=== PATIENT | female | born 1975 | race Caucasian/White ===

== ENCOUNTER → 2021-10-03 | Day surgery (SDC) | payer OTHER ==
[~2021-10-03] VITALS: Ht 167.6 cm; Wt 90.7 kg
[~2021-10-03] MED LIST: CALCIUM 500 +1 EAC5 PO; CALCIUM CARBO1000 MG; LEVOTHYROXIN0.125 M1; LEVOXYL150 MCG PO; NAPROSYN500 MG PO; ULTRAM 50MG TAB50 MG PO; VITAMIN D1000 UNI1
--- NOTE | ~2021-10-03 | O ---
[facility] [place] [address] OPERATIVE REPORT Name: CECELIA MONTEIRO Room #: REG [facility]..#: [id number] Admission: 10/03/21 Attend Phys: Lashawn Garcia, Discharge: Date of : 75 Report #: [id number] THIS REPORT FOR: cc: Mis Matos MD, Lin W. MD Deardorff,Lashawn Mcdonald MD ~ DATE OF SERVICE: 10/03/2021 PREOPERATIVE DIAGNOSIS: Left carpal tunnel syndrome. POSTOPERATIVE DIAGNOSIS: Left carpal tunnel syndrome. PROCEDURE PERFORMED: Left endoscopic carpal tunnel release. SURGEON: Lashawn Garcia MD ANESTHESIA: General mask anesthesia. ESTIMATED BLOOD LOSS: Minimal. TOURNIQUET TIME: 10 minutes. COMPLICATIONS: None. CONDITION: Stable. DISPOSITION: To recovery room. INDICATIONS: The patient is a 46-year-old female with the above-mentioned diagnosis. She elects for operative treatment. The risks, benefits, alternatives and complications were discussed including ____. Informed consent was obtained, the correct extremity was identified and labeled by myself. DESCRIPTION OF PROCEDURE: The patient was brought back to the operating room and placed in supine position. The left extremity was sterilely prepped and draped in the usual fashion. Final timeout was taken to verify correct patient, operative procedure, operative site. All agreed. The arm was elevated, exsanguinated and the tourniquet inflated. The entire procedure was done with the aid of 3.5x loupe magnification. Next, a transverse incision was made from the most proximal to the distal wrist crease in line with the ulnar border of the palmaris longus tendon. Dissection was carried down through subcutaneous tissue with tenotomy scissors. The antebrachial fascia was identified and incised. It was then incised for a few millimeters proximal. Next, an oblique incision was made at the distal edge of the carpal tunnel. The fat was elevated off the fascia. The fascia was carefully incised. Next, a Durant elevator was placed through the carpal tunnel and any synovial tissue was elevated off the [facility] [address] [place] [address] OPERATIVE REPORT Name: CECELIA MONTEIRO Room #: REG [facility] [place] M.R.#: [id number] Admission: 10/03/21 Attend Phys: Lashawn Garcia, Discharge: Date of : 75 Report #: [id number] undersurface of the transverse carpal ligament. A blunt trocar cannula was inserted with the wrist in maximal extension and digital compression distally. The blunt trocar was removed. The camera was inserted. I was able to see the nice transverse fibers of the undersurface of the transverse carpal ligament the entire length. The hook blade was brought in distally and the transverse carpal ligament was transected proximally all the way from the antebrachial fascia of the forearm all the way through the fat in the palm. The camera and cannula were then withdrawn, while visualizing the cut ends of the transverse carpal ligament. Next, each wound was explored. The release was all the way from the antebrachial fascia of the forearm all the way through the fat in the palm. The nerve looked to be in excellent condition. The wounds were thoroughly irrigated. The skin was closed with 4-0 nylon suture. Wounds dressed with Adaptic and sterile gauze after infiltrating the subcutaneous tissue with approximately 5 mL of ____ bulky dressing. All fingers were pink with brisk capillary refill at the conclusion of the case. All sponge and needle counts were correct. The patient transferred to postoperative recovery room in stable condition. By: [id number] Lashawn Garcia MD /nt
[2021-10-03 11:56] VITALS: BP 121/74
[2021-10-03 13:43] VITALS: BP 121/74
== END | disposition home or self-care (01) ==
LOC: OR 08:28
PROVIDERS: ATTEND Orthopaedic Surgery Hand Surgery
DX: G56.02 Carpal tunnel syndrome, left upper limb (principal); E20.9 Hypoparathyroidism, unspecified; Z98.890 Other specified postprocedural states; Z79.899 Other long term (current) drug therapy; Z20.822 Contact with and (suspected) exposure to COVID-19; Z88.0 Allergy status to penicillin; Z88.2 Allergy status to sulfonamides
CPT/HCPCS: 50010; 50101; 50386; 56526; 56969; 57006; 57091; 57178; 62110; 62900; 70005